=== PATIENT | male | born 1950 | race Caucasian/White ===

== ENCOUNTER 2017-06-29 10:01 | Emergency (ER) | payer OTHER, MEDICAID ==
[~2017-06-29] VITALS: Ht 172.7 cm; Wt 94.3 kg
[~2017-06-29 10:01] MED LIST: ASPI81EC98 PO; LISI-420 PO; NIFE30TE5 PO; QUET25TA PO
[2017-06-29 10:10] VITALS: BP 156/91
--- NOTE | 2017-06-29 10:18 | NUR ---
PT AMBULATES W/ STEADY GAIT TO BED 12 AT THIS TIME.
--- NOTE | 2017-06-29 10:22 | NUR ---
66 YO M BIB SELF W/ C/O LEFT FLANK PAIN 10/ X 4 DAYS THAT IS CONSTANT AND SHARP, NON-RADIATING. PT DENIES N/V, DENIES ANY SYMTPOMS. STATES THE SHARP PAIN CAUSES HIM TO LOSE HIS BREATH FROM TIME TO TIME. PT A&O X 4. GCS 15. CMS INTACT. AMBULATORY W/ STEADY GAIT. RR EVEN AND UNLABORED AT THIS TIME. LUNGS BILATERALLY CLEAR AT THIS TIME. ABD SOFT, NON-TENDER. ER MD ESTEBAN NOTIFIED OF PT STATUS. PT NEEDS MET. SAFETY PRECAUTIONS IN PLACE. WILL CONTINUE TO MONITOR.
--- NOTE | 2017-06-29 10:51 | NUR ---
PT TO XRAY AT THIS TIME VIA W/C.
[2017-06-29 10:54] LABS: APPEARANCE,URINE CLEAR (CLEAR); BILIRUBIN,URINE NEGATIVE (NEGATIVE); BLOOD, URINE NEGATIVE (NEGATIVE); COLOR,URINE YELLOW (YELLOW); LEUKOCYTE ESTERASE ,URINE NEGATIVE (NEGATIVE); NITRITE, URINE NEGATIVE (NEGATIVE); UGLUCOSE NEGATIVE (NEGATIVE)
--- NOTE | 2017-06-29 11:17 | NUR ---
PT BACK FROM XRAY AT THIS TIME VIA W/C.
[2017-06-29] MEDS ORDERED: KETOROLAC 60 MG/2 ML VIAL IM ONE (11:45)
[2017-06-29 12:16] VITALS: BP 177/108
--- NOTE | 2017-06-29 12:16 | NUR ---
Patient discharged with v/s stable. Written and verbal after care instructions given and explained. Patient alert, oriented and verbalized understanding of instructions. Ambulatory with steady gait. All questions addressed prior to discharge. ID band removed. Patient advised to follow up with PMD. Rx of Robaxin and Motrin given. Patient educated on indication of medication including possible reaction and side effects. Opportunity to ask questions provided and answered.
== END 2017-06-29 12:16 | disposition home or self-care (01) ==
LOC: MED 10:01
DX: M54.5 Low back pain (principal); I10 Essential (primary) hypertension; Z79.899 Other long term (current) drug therapy
CPT/HCPCS: 72110; 81003; 96372; 99285; J1885